=== PATIENT | female | born 1980 | race Caucasian/White ===

== ENCOUNTER → 2020-04-17 10:28 | Outpatient (CLI) | payer BC, SELFPAY ==
[2020-04-17 14:10] LABS: Coronavirus 19 IgG Antibody Negative (Negative); Coronavirus 19 IgM Antibody Negative (Negative)
== END ==
PROVIDERS: Visit Provider Internal Medicine Gastroenterology
DX: Z01.818 Encounter for other preprocedural examination (principal)
CPT/HCPCS: 36415; 86328

== ENCOUNTER 2020-04-18 07:27 | Day surgery (SDC) | payer BC, SELFPAY ==
[2020-04-15 11:40] VITALS: BMI 27.4
--- NOTE | 2020-04-16 09:48 | SUR.PREOP ---
04/16/2020 @ 7525--PHONE CALL MADE TO PATIENT. PATIENT UNDERSTANDS THAT LAB WORK AND COVID TESTING NEEDS TO BE COMPLETED @ 1030 ON 04/17/20. PATIENT UNDERSTANDS IF LAB WORK AND COVID-19 TESTS ARE NOT COMPLETED BY 12PM ON THAT DATE, THE SURGERY SCHEDULED WILL BE CANCELLED AND RESCHEDULED FOR ANOTHER TIME.
[2020-04-18] VITALS (7 sets, daily range): BP systolic 80–120; BP diastolic 47–62; PULSE 62–79; RESP 16; TEMP 36.4–36.7; O2SAT 95–100
[2020-04-18 08:27] LABS: Urine Pregnancy, HCG Qual. Negative (Negative)
--- NOTE | 2020-04-18 09:13 | HMH.PROC ---
[facility] Procedure Note Procedure Note:: Upper Endoscopy Procedure Report: Esophagogastroduodenoscopy with cold biopsies Endoscopost: Pedro Carroll II, MD Referring Physician: Demario Castillo MD Date of Procedure: April 18, 2020 Equipment: Olympus GIF 180 standard upper endoscope Sedation: MAC sedation Indications: Mrs. Mora is a 40-year-old female with belching, early satiety, heartburn and some indigestion and chest pressure. She did have a cardiac evaluation which was normal except for some sinus tachycardia. The patient develops symptoms of bloating. She will get lightheadedness with diaphoresis, dizziness, nausea and tachycardia. The patient does have chronic constipation/obstipation. She does take Motegrity and MiraLAX. She feels that Citrucel or fiber may cause more gassiness. She did have a colonoscopy in June 2019 and had diverticulosis. She also had a benign hyperplastic polyp that was removed. She has had some alopecia/hair loss which she feels may be related to vitamin deficiencies. She has had some fatigue. Her recent sucrose breath testing was normal. She has never had an upper endoscopy. She reports no dysphagia but does have occasional globus sensation. Procedure: Prior to the procedure, a history and physical exam was performed, and patient's medications and allergies were reviewed. The risks, benefits and alternatives of the sedation and procedure were discussed with the patient. All questions were answered and informed consent was obtained. The patient was brought to the procedure room. Patient identification and proposed procedure were verified by the physician and the nurse. The patient was placed in a left lateral decubitus position and the scope was passed under direct vision. Throughout the procedure, the patient's blood pressure, pulse, and oxygen saturations were monitored continuously. The upper GI endoscopy was accomplished without difficulty. The patient tolerated the procedure well. Findings: The scope was passed directly into the upper esophagus and advanced to the third portion of the duodenum. The post bulbar duodenum and duodenal bulb were normal with normal mucosa and conniventes. The scope was withdrawn through a normal duodenal bulb and pylorus into the stomach. There was evidence of linear reactive gastropathy of the antrum. The remainder of the antrum, body and fundus of the stomach were grossly normal. Upon retroflexion there was a 2 cm small hiatal hernia. 2 biopsies were taken in the antrum and along the lesser curvature for histology to rule out gastritis and/or H pylori. The scope was then withdrawn into the esophagus. There was a serrated Z line and biopsies were taken at the GE junction to rule out intestinal metaplasia. There were tertiary contractions and evidence of moderate esophageal dysmotility. The remainder of the esophageal mucosa was normal. Impression: 1. Nonerosive GERD with moderate esophageal dysmotility and small 2 cm hiatal hernia 2. Linear reactive gastropathy of antrum Plan: I do feel the patient has functional GERD and vasovagal symptoms with some esophageal dyskinesia/esophageal spasm. I would recommend continued therapy for the patient's obstipation/chronic constipation. I would also continue pro-motility therapy and would consider metoclopramide or domperidone. I will follow-up the biopsies.
--- NOTE | 2020-04-18 09:45 | P.PN_ITS ---
[facility] Anesthesia Checklist - Structural Data Admitted From: Home Planned Operative Procedure/s: egd Consent for Planned Operative Procedure(s) Verified: Yes - Airway Assessment C-Spine Mobility Assessed: Yes TMJ Mobility Assessed: Yes Dentition: Good Dentition - Neurological Assessment Level of Consciousness: Awake, Alert, Appropriate - Anesthesia Plan Anesthesia Risk discussed: Yes Anesthesia Plan: Verified ASA Class: II Anesthesia Type: MAC [facility] History I have reviewed the patient's past medical history: Yes Medical History: Reports:: MRSA (teen) Denies:: Cancer, Diabetes Mellitus Type 1, Diabetes Mellitus Type 2, Internal Pacemaker, Seizures *Have you ever received a pneumonia vaccine?: No *Have you received a flu vaccine this season?: No Anesthesia experience/problems:: none Other Surgeries: No: Pacemaker Amputation: No - *Social History Alcohol Intake: current Alcohol Intake Frequency:: holidays/special occasions only Substance Use Type: denies use *Occupational Status:: employed *Travel in the last 8 weeks: None Family Hx:: No significant family history
== END 2020-04-18 10:32 | disposition home or self-care (01) ==
PROVIDERS: PCP Family Medicine; Visit Provider Internal Medicine Gastroenterology
PROC: 0DJ08ZZ Inspection of Upper Intestinal Tract, Via Natural or Artificial Opening Endoscopic (ICD-10-PCS; CPT 43235; principal; 2020-04-18 09:00)
DX: Z86.010 Personal history of colon polyps (principal); K44.9 Diaphragmatic hernia without obstruction or gangrene; K21.9 Gastro-esophageal reflux disease without esophagitis; K22.4 Dyskinesia of esophagus; K31.9 Disease of stomach and duodenum, unspecified; R00.0 Tachycardia, unspecified; Z83.79 Family history of other diseases of the digestive system; Z82.49 Family history of ischemic heart disease and other diseases of the circulatory system; Z84.89 Family history of other specified conditions; Z88.0 Allergy status to penicillin; Z86.14 Personal history of Methicillin resistant Staphylococcus aureus infection; Z79.899 Other long term (current) drug therapy
CPT/HCPCS: 43239; 81025

== ENCOUNTER 2025-05-22 06:47 | Day surgery (SDC) | payer BC, SELFPAY ==
[2025-05-16 13:01] VITALS: BMI 26.6
[2025-05-22 07:06] VITALS: BP 95/65; PULSE 77; RESP 16; TEMP 36.2; O2SAT 98
[2025-05-22 07:12] VITALS: BMI 26.6
[2025-05-22] MEDS: LACTATED RINGERS 1000ML 1,000 ML 25 ML IV (07:13)
--- NOTE | 2025-05-22 07:24 | EXP.HP ---
History of Present Illness *Admission Date: 05/22/25 *Reason for visit:: Personal history of adenomatous colon polyps *History of present illness: Mrs. Mora is a 45-year-old female who is here for repeat surveillance colonoscopy secondary to a personal history of adenomatous polyps. The examination is deemed medically necessary for screening/surveillance colonoscopy. The patient has been seen, interviewed and examined prior to the procedure by both myself and the anesthesia provider. [facility] Disclaimer: The information contained in this section may have been updated after the patient was seen, as this information can be updated by other users. Medical History (Updated 05/22/25 @ 07:26 by Pedro Carroll II, MD) Tachycardia Chronic constipation Irritable bowel syndrome with constipation Functional dyspepsia Surgical History History of tonsillectomy Family History Mother Ulcerative colitis Other Family history of cancer Social History Smoking Status: Never smoker alcohol intake: never substance use type: denies use current occupational status: employed Travel in the last 8 weeks?: None caffeine: Yes Have you lived/traveled outside [place] in past 30 days?: No Contact w/someone who lives/traveled outside US past 30 days?: No Exposure to someone with infectious disease in past 14 days?: No Do you have a fever (greater than 100.4 F or 38 C)?: No Have you tested positive for COVID-19?: Yes Exposed to someone with COVID-19 in past 14 days?: No Do you have a sore throat?: No Do you have a cough?: No Do you have any weakness?: No Are you experiencing any nausea/vomitting?: No Do you have any diarrhea?: No Are you experiencing any unusual bleeding?: No Do you have any muscle aches/pain?: No Do you have any abdominal pain?: No Are you experiencing loss of taste or smell?: No Other Medical History Have you received the Flu Vaccine for this season: No Have you received the Pneumonia Vaccine: No Review of Systems Review of Systems Review of systems (narrative): Negative *Cardiovascular Comments: Negative *Gastrointestinal Comments: Negative *Genitourinary Comments: Negative *Musculoskeletal Comments: Negative *Neurologic Comments: Negative Meds Home Medications and Allergies Home Medications ?Medication ?Instructions ?Recorded ?Confirmed ?Type atenolol 25 mg tablet 25 mg PO DAILY Tachycardia 04/15/20 05/22/25 History tenapanor 50 mg tablet (Ibsrela) 50 mg PO ONCE PRN Constipation 08/30/24 05/22/25 History vitamin B complex 1 cap PO QID PRN Supplement 08/30/24 05/22/25 History prucalopride 2 mg tablet 2 mg PO DAILY constipation #30 tabs 10/02/24 05/22/25 Rx cholecalciferol (vitamin D3) 50 50 mcg PO DAILY 02/28/25 05/22/25 History mcg (2,000 unit) capsule magnesium 250 mg tablet 250 mg PO DAILY 02/28/25 05/22/25 History vitamin B12 500 mcg-folic acid 400 1 tab PO DAILY 02/28/25 05/22/25 History mcg tablet [id number] 140 gram-sod sulfate 9 500 ml PO .COMPLEX colonscopy #3 ea 05/06/25 Rx gram-NaCl 5.2gram-KCl-C oral pwdr packs (Plenvu) New Prescriptions to Start Prescriptions: Allergies Allergy/AdvReac Type Severity Reaction Status Date / Time Penicillins Allergy Severe Anaphylaxis Verified 05/22/25 07:03 lidocaine Allergy Hives Verified 05/22/25 07:03 metoclopramide (From Reglan) AdvReac Hallucinati Verified 05/22/25 07:03 ng Exam Data for Last 24 hours Vital signs and Labs for Last 24 Hours: Temp Pulse Resp BP Pulse Ox O2 Del Method 97.1 F L 77 16 95/65 L 98 Room Air 05/22/25 07:06 05/22/25 07:06 05/22/25 07:06 05/22/25 07:06 05/22/25 07:06 05/22/25 07:06 I & O for Last 24 hours: Intake & Output 05/19/25 05/20/25 05/21/25 05/22/25 23:59 23:59 23:59 23:59 Weight 155 lb *Routine HEENT Exam Head: Present normocephalic Eye: Present EOMI and PERRL ENT: Present mucous membranes moist *Routine Neck Exam Neck: Present supple *Routine Respiratory Exam Respiratory: Present CTA bilaterally *Routine Cardiovascular Exam Cardiovascular: Present RRR *Routine Abdominal Exam Abdominal: Present soft and normoactive bowel sounds; Absent tenderness *Routine Rectal Exam Rectal:: deferred *Routine Genitalia Exam Genitalia:: deferred *Routine Extremities Exam Extremities: Absent cyanosis, clubbing or edema *Routine Skin Exam Skin: Present warm; Absent rash *Routine Neurological Exam Neurological: Present alert and oriented X3 Assessment and Plan *Assessment and plan (1) Personal history of adenomatous and serrated colon polyps: Status: Acute Category: Medical Code(s): Z86.0101 - Personal history of adenomatous and serrated colon polyps Plan A/P: 1. Personal history of adenomatous colon polyps is the preprocedural diagnosis. Her last colonoscopy was June 2019. The patient will be anesthetized/sedated using MAC sedation. The patient has been seen and examined. Cardiac and lung assessment prior to the examination is stable. Proceed with planned surveillance colonoscopy.
[2025-05-22 07:34] LABS: Urine Pregnancy, HCG Qual. Negative (Negative)
--- NOTE | 2025-05-22 07:52 | EXP.ANES.CKL ---
[facility] Disclaimer: The information contained in this section may have been updated after the patient was seen, as this information can be updated by other users. Medical History (Updated 05/22/25 @ 07:26 by Pedro Carroll II, MD) Tachycardia Chronic constipation Irritable bowel syndrome with constipation Functional dyspepsia Surgical History History of tonsillectomy Family History Mother Ulcerative colitis Other Family history of cancer Social History Smoking Status: Never smoker alcohol intake: never substance use type: denies use current occupational status: employed Travel in the last 8 weeks?: None caffeine: Yes Have you lived/traveled outside [place] in past 30 days?: No Contact w/someone who lives/traveled outside [place] past 30 days?: No Exposure to someone with infectious disease in past 14 days?: No Do you have a fever (greater than 100.4 F or 38 C)?: No Have you tested positive for COVID-19?: Yes Exposed to someone with COVID-19 in past 14 days?: No Do you have a sore throat?: No Do you have a cough?: No Do you have any weakness?: No Are you experiencing any nausea/vomitting?: No Do you have any diarrhea?: No Are you experiencing any unusual bleeding?: No Do you have any muscle aches/pain?: No Do you have any abdominal pain?: No Are you experiencing loss of taste or smell?: No [facility] Anesthesia Checklist Patient Identification Patient Identification: Arm Band Structural Data Admitted From: Home Planned Operative Procedure/s: Colonoscopy Consent for Planned Operative Procedure(s) Verified: Yes Verified Documents: Surgical Consent and History and Physical NPO Status Verified Time NPO: 00:00 Additional verifications Anesthesia Reactions: No Airway Assessment Mallampati Score:: Class II C-Spine Mobility Assessed: Yes TMJ Mobility Assessed: Yes Dentition: Good Dentition Neurological Assessment Level of Consciousness: Awake, Alert and Appropriate Anesthesia Plan Anesthesia Risk discussed: Yes Anesthesia Plan: Verified ASA Class: II Anesthesia Type: MAC
--- NOTE | 2025-05-22 07:58 | HMH.PROCNOTE ---
[facility] Procedure Note Date: 05/22/25 Time: 08:12 Procedure Note:: Colonoscopy Procedure Report: Colonoscopy Endoscopist: Pedro Carroll II, MD Referring physician: Demario Castillo MD Date of Procedure: May 22, 2025 Equipment: Olympus 190 variable stiffness pediatric colonoscope Sedation: MAC sedation Indication: Mrs. Mora is a 45-year-old female who is here for follow-up screening/surveillance colonoscopy. Her colonoscopy in 2013 revealed a couple of benign polyps (tubular adenomas) which were removed. Her most recent colonoscopy in June 2019 revealed a single hyperplastic polyp that was removed. The patient has had longstanding IBS constipation and is on Motegrity and Ibsrela. She continues to struggle intermittently with ongoing constipation. She did have pelvic floor physical therapy several years ago ([facility] physical therapy). The patient reports no rectal bleeding, weight loss or family history of colon cancer. Her mother had colitis. She does get a lot of gassiness, bloating, belching and lower abdominal discomfort. Procedure: Prior to the procedure, a history and physical exam was performed, and patient's medications and allergies were reviewed. The risks, benefits and alternatives of the sedation and procedure were discussed with the patient. All questions were answered and informed consent was obtained. The patient was brought to the procedure room. Patient identification and proposed procedure were verified by the physician and the nurse. The patient was placed in a left lateral decubitus position and the scope was passed under direct vision. Throughout the procedure, the patient's blood pressure, pulse, and oxygen saturations were monitored continuously. The colonoscopy was accomplished without difficulty. The patient tolerated the procedure well. Findings: On digital rectal examination there was normal rectal tone. There were no external hemorrhoids. There was a small anterior rectocele. The colonoscope was introduced through the anal canal to the rectum and advanced to the cecum. The ileocecal valve and appendiceal orifice were identified. The scope was advanced a short distance into the ileum which appeared grossly normal. The scope was then withdrawn into the colon. The cecum, ascending, transverse, descending, sigmoid and rectum were grossly normal. There were no mucosal abnormalities identified. Upon retroflexion within the rectum there were grade 1 internal hemorrhoids. The preparation was excellent throughout with Deep Gap Preparation Score of 9. The cecal time was 11 minutes. Impression: 1. Normal colonoscopy with intubation of the terminal ileum 2. Small anterior rectocele 3. Grade 1 internal hemorrhoids Plan: The patient will not require surveillance colonoscopy again for 10 years by ACS guidelines. I would recommend that she once again follow-up with pelvic floor physical therapy and the patient does have outlet dysfunction constipation. Slow transit constipation refers to slowed movement of contents through the digestive tract and this type of constipation responds very well to most laxatives. Outlet dysfunction, which makes up 50% of those with constipation, refers to an issue with the actual elimination mechanism of stool. The diagnosis of outlet dysfunction constipation is often made in those patients with constipation that respond poorly or not at all to standard laxatives such as osmotics (MiraLAX, Ibsrela, Trulance), Motegrity, fiber supplements, stimulant laxatives, diet and fluid intake. Up to 50% of patients with chronic constipation have pelvic floor dysfunction (PFD, or dyssynergia). This condition is characterized by impaired coordination between pelvic floor muscle (e.g., puborectalis) relaxation and weakness of the defecatory mechanism which is necessary for normal defecation and bowel evacuation. Defecatory function is a delicate balance between the nerves and muscles. The nerves that arise from the sacral spine are very closely tied to bowel/rectal evacuation. This sacral nervous system allows you to recognize when your rectum is full and allows you to correctly contract muscles to allow for your rectum to evacuate fully. When this balance is upset there is incorrect communication between the nervous system and defecatory muscles (i.e. neuromuscular). Unfortunately, pelvic floor dysfunction is not widely recognized as a possible cause of chronic constipation. As a result, many patients with medically refractory constipation do not receive optimal therapies that enable them to recover normal bowel habits. When mechanical, anatomic, and disease- and diet-related causes of constipation have been ruled out, clinical suspicion should be raised to the possibility that pelvic floor dysfunction is causing or contributing to constipation. The biggest mainstay of treatment for pelvic floor dysfunction includes retraining the pelvic floor muscles with biofeedback physical therapy. Most reviews conclude that more than 70% of adult patients complaining of pelvic floor dyssynergia are likely to benefit from biofeedback training (to completion) and so this is the treatment of choice for the problem. In some large tertiary centers of excellence (i.e. [facility] and [facility]), a larger array of additional diagnostic tests are performed included anorectal manometry and electromyography, barium defecography, water-filled balloon expulsion from the rectum and colonic transit studies with radiopaque markers are often utilized to assess severity. Most of this testing is not regionally available and most feel it is not feasible especially in the setting of failed agents and laxatives. [facility] ([facility]) for pelvic floor training.
[2025-05-22 08:14] VITALS: BP 96/35; PULSE 85; RESP 16; TEMP 36.2; O2SAT 100
[2025-05-22 08:24] VITALS: BP 125/48; PULSE 92; RESP 18; O2SAT 100
[2025-05-22 08:34] VITALS: BP 102/50; PULSE 75; RESP 16; O2SAT 100
[2025-05-22 08:44] VITALS: BP 120/56; PULSE 77; RESP 16; O2SAT 100
== END 2025-05-22 08:48 | disposition home or self-care (01) ==
PROVIDERS: PCP Family Medicine; Visit Provider Internal Medicine Gastroenterology
PROC: 0DJD8ZZ Inspection of Lower Intestinal Tract, Via Natural or Artificial Opening Endoscopic (ICD-10-PCS; CPT 45378; principal; 2025-05-22 08:30)
DX: Z12.11 Encounter for screening for malignant neoplasm of colon (principal); K64.0 First degree hemorrhoids; N81.6 Rectocele; K30 Functional dyspepsia; K58.1 Irritable bowel syndrome with constipation; Z86.0101 Personal history of adenomatous and serrated colon polyps; Z86.0102 Personal history of hyperplastic colon polyps; Z83.79 Family history of other diseases of the digestive system; Z79.899 Other long term (current) drug therapy; Z88.0 Allergy status to penicillin; Z88.4 Allergy status to anesthetic agent; Z88.8 Allergy status to other drugs, medicaments and biological substances
CPT/HCPCS: 45378; 81025; J2704; J7120